=== PATIENT | female | born 1940 | race Caucasian/White ===

== ENCOUNTER 2018-04-12 11:28 | Emergency (ER) | payer OTHER ==
[~2018-04-12] VITALS: Ht 160 cm; Wt 59.0 kg
[2018-04-12 11:33] VITALS: Ht 160 cm; Wt 59.0 kg
[2018-04-12 12:55] LABS: CALCIUM 10.4 mg/dL (8.5-10.1); CARBON DIOXIDE 26.8 mmol/L (21-32); CHLORIDE SERUM 96 mmol/L (98-107); CREATININE SERUM 1.1 mg/dL (0.6-1.0); GLUCOSE SERUM 91 mg/dL (74-106); POTASSIUM SERUM 4.1 mmol/L (3.5-5.1); SODIUM SERUM 134 mmol/L (136-145)
[2018-04-12 13:01] LABS: ALBUMIN 4.3 g/dL (3.4-5.0); ALKALINE PHOSPHATASE 85 U/L (46-116); ALT/SGPT 19 U/L (14-59); AST/SGOT 23 U/L (15-37); BILIRUBIN TOTAL 0.6 mg/dL (0.20-1.00); TOTAL PROTEIN, SERUM 8.2 g/dL (6.4-8.2)
[2018-04-12 13:02] LABS: CHOLESTEROL 264 mg/dL (<200)
[2018-04-12 13:03] LABS: T3 TOTAL 1.04 ng/mL
[2018-04-12 13:12] LABS: PLATELET COUNT 188 x10^3mcL (130-400)
[2018-04-12 13:13] LABS: BASOPHIL % 0.2 % (0-2)
[2018-04-12 13:30] LABS: FREE T4 1.6 ng/dL (0.76-1.46); FREE THYROXINE INDEX 4.5 ug/dL (1.4-4.5); T4(THYROXINE) 12.8 ug/dL (4.7-13.3)
[2018-04-12 17:15] VITALS: BP 121/75
== END 2018-04-12 17:15 | disposition home or self-care (01) ==
LOC: ED 11:28
PROVIDERS: Emergency Medicine
DX: F17.210 Nicotine dependence, cigarettes, uncomplicated (principal); J44.9 Chronic obstructive pulmonary disease, unspecified; F03.90 Unspecified dementia, unspecified severity, without behavioral disturbance, psychotic disturbance, mood disturbance, and anxiety; E46 Unspecified protein-calorie malnutrition; E78.00 Pure hypercholesterolemia, unspecified; I10 Essential (primary) hypertension
CPT/HCPCS: 36415; 84439; G0480; Q0092